=== PATIENT | male | born 1990 | race Hispanic/Latino ===

== ENCOUNTER 2018-12-07 09:10 | Inpatient (IN) | payer OTHER ==
[2018-12-07] MEDS ORDERED: LIDOCAINE HCL 1% 20 ML VIAL ONE (09:28)
[2018-12-07] MEDS ORDERED: ACETAMINOPHEN EXTRA STRENGTH 500 MG TABLET ONE (09:28)
[2018-12-07] MEDS ORDERED: TETANUS/DIPHTHERIA TOXOID [ADULT] 0.5 ML VIAL IM ONE (09:29)
[2018-12-07] MEDS ORDERED: BUPIVACAINE/PF 0.5% 30ML VIAL ONE (09:31)
[2018-12-07] MEDS ORDERED: CEFAZOLIN SODIUM 1 GM VIAL ONE (10:23)
[2018-12-07 10:41] LABS: BASOPHILS % (AUTO) 0.3 % (0.0-5.0); EOSINOPHILS % (AUTO) 0.5 % (0.0-8.0); HEMATOCRIT 46.3 % (42-54); LYMPHOCYTES % (AUTO) 19.5 % (21.0-51.0); MEAN CORPUSCULAR HEMOGLOBIN 30.2 pg (27.0-33.0); MEAN CORPUSCULAR VOLUME 86.5 fL (79-99); MONOCYTES % (AUTO) 7.1 % (3.0-13.0); NEUTROPHILS % (AUTO) 72.6 % (40.0-77.0); PLATELET COUNT (AUTO) 210 K/uL (130-400); RED BLOOD CELL COUNT(AUTO) 5.35 MIL/uL (4.50-6.20); RED CELL DISTRIBUTION WIDTH 12.7 % (11.0-15.5); WHITE BLOOD COUNT (AUTO) 8.2 K/uL (4.8-10.8)
[2018-12-07 10:53] LABS: INR 0.95 (0.85-1.15); PARTIAL THROMBOPLASTIN TIME 24.5 SEC (26.3-35.5)
--- NOTE | 2018-12-07 11:00 | NUR ---
Admitted from ER with injury to the 2nd and 3rd fingers at work, currently denies pain, accompanied by a friend.
[2018-12-07 11:05] VITALS: BP 141/81
[2018-12-07 11:11] LABS: POTASSIUM 3.8 mmol/L (3.5-5.1)
--- NOTE | 2018-12-07 11:55 | NUR ---
Pt. went downstairs to smoke
[2018-12-07 12:11] LABS: AMPHET/METH SCREEN,URINE NEGATIVE (NEGATIVE); BARBITURATE SCREEN, URINE NEGATIVE (NEGATIVE); BENZODIAZEPINES SCREEN,URINE NEGATIVE (NEGATIVE); CANNABINOID SCREEN,URINE NEGATIVE (NEGATIVE); COCAINE SCREEN,URINE NEGATIVE (NEGATIVE); OPIATE SCREEN,URINE NEGATIVE (NEGATIVE); PHENCYCLIDINE SCREEN,URINE NEGATIVE (NEGATIVE)
--- NOTE | 2018-12-07 13:11 | NUR ---
Pt. went downstairs to smoke.
--- NOTE | 2018-12-07 15:58 | NUR ---
cm note pt resideswith Sp , indepependent with adls and ambulation, no dme. works, and dc plan is back to same setting at time of dc. states no dc needs. will followup as needed for any dc needs. Addendum: 12/08/18 at 1600 by EFRIAN HOOKS CM Amended: Links added.
[2018-12-07 17:00] VITALS: BP 150/83
[2018-12-07] MEDS: CEFAZOLIN SODIUM 1 GM VIAL IVP SCH (17:19)
[2018-12-07 19:00] VITALS: BP 148/99
[2018-12-07] MEDS: MORPHINE SULFATE 2 MG/ML 1ML SYG IVP PRN ×2 (22:49→23:56)
[2018-12-08] VITALS (21 sets, daily range): BP systolic 142–169; BP diastolic 70–110
[2018-12-08] MEDS: CEFAZOLIN SODIUM 1 GM VIAL IVP SCH ×3 (01:21→17:44)
[2018-12-08] MEDS: MORPHINE SULFATE 2 MG/ML 1ML SYG IVP PRN ×5 (01:45→21:31)
[2018-12-08] MEDS: NICOTINE 21 MG/ 24 HR PATCH TD SCH (10:29)
--- NOTE | 2018-12-08 10:36 | NUR ---
PATIENT TAKEN DOWNSTAIRS FOR SURGERY. AWAKE AND ALERT, VOICES NO COMPLAINTS.
[2018-12-08] MEDS ORDERED: LACTATED RINGERS 1000ML 1,000 ML IV ONE (10:39)
[2018-12-08] MEDS: ACETAMINOPHEN-CODEINE 300/30MG TAB PO PRN (12:26)
[2018-12-08] MEDS ORDERED: LIDOCAINE PF 2% 5ML ABBOJECT ONE (13:07)
[2018-12-08] MEDS ORDERED: FENTANYL CITRATE PF 50 MCG/1 ML 2ML VIAL ONE ×2 (13:07→13:48)
[2018-12-08] MEDS ORDERED: PROPOFOL 10 MG/ML 20ML VIAL IV ONE ×2 (13:07→13:24)
[2018-12-08] MEDS ORDERED: NEOMY SULF/POLYMYXIN B SULFATE 1 ML AMPUL IR ONE (13:13)
[2018-12-08] MEDS ORDERED: MIDAZOLAM HCL 1 MG/ML 2ML VIAL ONE (13:24)
[2018-12-08] MEDS ORDERED: MEPERIDINE-PF 25 MG/ML SYG ONE (14:17)
[2018-12-08] MEDS ORDERED: ONDANSETRON HCL 4 MG/2 ML VIAL ONE (14:18)
[2018-12-08] MEDS ORDERED: KETOROLAC TROMETHAMINE 30MG/ML ONE (14:18)
[2018-12-08] MEDS ORDERED: MEPERIDINE-PF 50 MG/ML SYG ONE (14:35)
--- NOTE | 2018-12-08 21:20 | NUR ---
SMOKE PT REQUESTED TO GO DOWN TO SMOKE. PCP ASKED TO ACCOMPANY PT. EXPLAINED THAT THIS WILL JUST BE THE ONE TIME TONIGHT THAT HE WILL BE ALLOWED TO GO DOWN TO SMOKE. PT VERBALIZES UNDERSTANDING.
--- NOTE | 2018-12-08 21:30 | NUR ---
PAIN PT IS BACK IN ROOM. COMPLAINTS OF PAINS TO HIS LEFT HAND. MEDICATED WITH MORPHINE IV. KEPT LEFT ARM/HAND ON A SLING. KEPT RESTED IN BED. CALL LIGHT WITHIN REACH. WILL RE-ASSESS PT.
[2018-12-09 00:30] VITALS: BP 155/87
[2018-12-09] MEDS: ACETAMINOPHEN-CODEINE 300/30MG TAB PO PRN ×2 (00:38→08:52)
--- NOTE | 2018-12-09 02:00 | NUR ---
MEDS PT FAIRLY ASLEEP WITH RESPIRATIONS EVEN AND UNLABORED. NO DISTRESS NOTED. DUE IV ANTIBIOTICS INFUSED. KEPT COMFORTABLE IN BED. CALL LIGHT WITHIN REACH. WILL MONITOR PT.
[2018-12-09] MEDS: CEFAZOLIN SODIUM 1 GM VIAL IVP SCH (02:06)
[2018-12-09] MEDS: MORPHINE SULFATE 2 MG/ML 1ML SYG IVP PRN ×2 (03:16→07:12)
[2018-12-09 04:02] VITALS: BP 184/99
[2018-12-09 04:03] VITALS: BP 131/71
[2018-12-09] MEDS ORDERED: TYL3 PO (06:09)
[2018-12-09] MEDS ORDERED: CEPH500B PO (06:09)
--- NOTE | 2018-12-09 07:18 | NUR ---
REPORT PT COMPLAINTS OF LEFT HAND PAINS. MEDICATED WITH MORPHINE IV. ENDORSED TO AM SHIFT PENDING D/C HOME. PT'S FAMILY ON THE WAY TO PICK PT UP BUT IS STILL 2 HOURS AWAY.
[2018-12-09 08:00] VITALS: BP 138/80
[2018-12-09] MEDS: NICOTINE 21 MG/ 24 HR PATCH TD SCH (08:44)
--- NOTE | 2018-12-09 12:00 | NUR ---
DISCHARGE INSTRUCTIONS GIVEN. INSTRUCTED PATIENT TO SEE DR LUNDBERG TOMORROW AT 10:45 12/10/2018 AND START WITH PRESCRIPTIONS INDICATED. IV DISCONTINUED WITH INNER CANNULA INTACT. ALL QUESTIONS ANSWERED.
== END 2018-12-09 12:50 | disposition home or self-care (01) | DRG 906 ==
LOC: EDH 09:10 → 4CH 09:45
PROVIDERS: ADMIT Surgery Plastic and Reconstructive Surgery; ATTEND Surgery Plastic and Reconstructive Surgery
PROC: 3E0234Z Introduction of Serum, Toxoid and Vaccine into Muscle, Percutaneous Approach (ICD-10-PCS; 2018-12-07)
PROC: 0HRGX73 Replacement of Left Hand Skin with Autologous Tissue Substitute, Full Thickness, External Approach (ICD-10-PCS; 2018-12-08)
PROC: 0PBV0ZZ Excision of Left Finger Phalanx, Open Approach (ICD-10-PCS; 2018-12-08)
PROC: 0PBV0ZZ Excision of Left Finger Phalanx, Open Approach (ICD-10-PCS; principal; 2018-12-08 13:00)
DX: S68.123A Partial traumatic metacarpophalangeal amputation of left middle finger, initial encounter (principal); S68.125A Partial traumatic metacarpophalangeal amputation of left ring finger, initial encounter; Z23 Encounter for immunization; X58.XXXA Exposure to other specified factors, initial encounter; Y93.89 Activity, other specified; Y92.89 Other specified places as the place of occurrence of the external cause; Y99.8 Other external cause status
CPT/HCPCS: 36415; 73130; 80048; 80305; 85025; 85610; 85730; 90714; G0378; J0690; J1885; J2001; J2175; J2250; J2405; J2704; J3010; J3490; J7120